=== PATIENT | female | born 1950 | race Two or more races ===

== ENCOUNTER → 2025-02-23 | Outpatient (CLI) | payer OTHER ==
[2025-02-23 09:27] LABS: Urine Protein, UAD Negative (Negative)
[2025-02-23 09:52] LABS: Alanine Aminotransferase 30 U/L (7-40); Albumin 4.6 g/dL (3.2-4.8); Alkaline Phosphatase 98 U/L (46-116); Anion Gap 10 (5-15); BUN/Creatinine Ratio 14.5 (10.0-20.0); Bilirubin, Total 0.4 mg/dL (0.2-1.0); Blood Urea Nitrogen 17 mg/dL (9-23); Calcium 9.6 mg/dL (8.7-10.4); Carbon Dioxide 23 mmol/L (20-31); Chloride 106 mmol/L (98-107); Cholesterol 213 mg/dL (< 200); Glucose 141 mg/dL (74-106); HDL Cholesterol 84 mg/dL (40-59); Potassium 4.1 mmol/L (3.5-5.1); Sodium 139 mmol/L (136-145); Total Protein 7.9 g/dL (5.7-8.2); Triglycerides 180 mg/dL (< 150)
[2025-02-23 10:16] LABS: Hematocrit 41.7 % (36.0-46.0); Hemoglobin 14.1 g/dL (12.2-16.2); Mean Corpuscular Hemoglobin 32.2 pg (28.0-32.0); Mean Corpuscular Volume 95.1 fL (80.0-100.0); Nucleated Red Blood Cells % 0.1 %
[2025-02-23 10:31] LABS: Microalb/Creat Ratio, Urine 43.0
== END | disposition home or self-care (01) ==
LOC: LAB 08:32
PROVIDERS: ATTEND Nurse Practitioner Family
DX: E11.9 Type 2 diabetes mellitus without complications (principal); Z12.11 Encounter for screening for malignant neoplasm of colon
CPT/HCPCS: 36415; 80053; 80061; 81003; 82043; 82306; 82570; 83036; 84443; 85025; 87086